=== PATIENT | female | born 2000 | race Caucasian/White ===

== ENCOUNTER 2024-11-22 00:17 | Emergency (ER) | payer BC ==
[~2024-11-22] VITALS: Ht 157.5 cm; Wt 87.5 kg
[2024-11-22 00:19] VITALS: TEMP 97.6
[2024-11-22 00:49] LABS: LEUKOCYTE ESTERASE ,URINE TRACE (Neg); NITRITES, URINE NEGATIVE (Neg); OCCULT BLOOD,URINE TRACE-INTACT (Neg); UA COLLECTION TYPE CLN CATCH MIDSTREAM
[2024-11-22 00:50] LABS: URINE HCG NEGATIVE (NEG)
[2024-11-22 00:52] LABS: MEAN PLATELET VOLUME 7.6 FL (7.4-10.4); RED CELL DISTRIBUTION WIDTH 12.7 % (11.5-14.5)
[2024-11-22 00:55] LABS: CREATININE 0.92 MG/DL (0.40-0.90); TOTAL CARBON DIOXIDE 27.5 MMOL/L (24-32); eCRCL 75 ML/MIN; eGFR 75 ML/MIN
[2024-11-22 00:57] LABS: MUCUS STRANDS MODERATE /LPF (Neg); SQUAMOUS EPITHELIAL CELL,UR MODERATE /LPF (FEW)
[2024-11-22] MEDS ORDERED: morphine 4 MG/ML inj SYRINge IV PRN (02:15)
--- NOTE | 2024-11-22 02:16 | Physician Documentation ---
History of Present Illness ~ Chief Complaint: Abdominal Pain Stated Complaint: ABDOMINAL/SIDE PAIN Time Seen by MD: 01:38 Source: patient Mode of Arrival: POV Exam Limitations: no limitations HPI Chief Complaint: Left upper quadrant abdominal pain and flank pain Caveat: None Independent Historians: None History of Present Illness: Patient is a 24-year-old woman who comes in complaining of pain in the left upper quadrant that started approximately three days ago. It started off as being intermittent but has gotten progressively worse in his now constant. Patient's pain is currently 8/10. No alleviating or exacerbating factors. Pain is described as sharp and radiating. Patient also has pain in her left shoulder. Patient has had chronic urinary urgency. But no acute dysuria or frequency. No fevers. But approximately 5-6 days ago she was having problems of feeling cold and then hot. Patient has had associated nausea. No vomiting. No diarrhea. Review of systems: All systems were reviewed and are negative except for what is indicated in the history of present illness. Past Medical History: PCOS Past Surgical History: Cholecystectomy, tonsillectomy Social History: Occasionally vapes, no tobacco use, no alcohol use, no drug use Medications: Reviewed as documented Nursing Notes Allergies: Reviewed as documented in Nursing Notes Medication Reconciliation Allergies: Coded Allergies: No Known Allergies (Unverified , 11/22/24) Review of Systems All Other Systems at this time: Reviewed and Negative ROS Patient denies any other acute symptoms other than above. All other systems are negative Physical Exam Vital Signs: RN Vital Signs have been reviewed: Yes, Temperature: 97.6, Heart Rate: 82, Respiratory Rate: 16, BP: 120/79, Pulse Oximetry: 96, Weight: 87.500 Pulse Oximetry Reflects: adequate oxygenation Physical Exam General Appearance: Mild distress HEENT: Normal OP, moist oral mucosa, PERRL, EOMI Neck: supple, normal ROM, trachea midline Pulmonary: No respiratory distress, CTA, BS equal Cardiac: RRR, no murmur, rub or gallop, GI: nondistended, soft, left upper quadrant tenderness, normal bowel sounds, no guarding, no rebound : Bilateral CVA tenderness Extremities: normal ROM, no swelling, non-tender Skin: intact, dry, warm, no rashes Neuro: AAOx3, speech is clear, no focal motor weakness Psych: normal affect, good eye contact, no apparent hallucination, normal speech Progress Results/Orders Results/Orders Orders - NIKKI THOMPSON MD Cult Urine + [address] (11/22/24 00:58) Urinalysis, Cult If Indicated (11/22/24 02:11) Ed Iv Pain Medications (11/22/24 02:11) Ct Abdomen Pelvis (11/22/24 02:27) Saline Lock (11/22/24 02:11) Completed Orders - NIKKI THOMPSON MD Hcg, Ur Ql (11/22/24 00:23) Cbc/Diff (11/22/24 00:23) BMP (11/22/24 00:23) Lipase (11/22/24 00:23) CMP (11/22/24 00:23) Ua W/Microscopic, Cult If Ind (11/22/24 00:24) Ondansetron Inj. (Zofran 4mg/2ml Vial) (11/22/24 02:15) Morphine 4mg/Ml Inj. (Morphine Inj.) (11/22/24 02:15) Ct Abdomen Pelvis (11/22/24 02:27) Ketorolac Trometh 15mg/Ml Vial (Toradol (11/22/24 02:15) Vital Signs 11/22/24 11/22/24 11/22/24 11/22/24 00:19 00:51 01:25 02:45 Temp 97.6 Pulse 110 82 Resp 15 16 17 B/P (MAP) 122/79 120/79 (93) Pulse Ox 100 96 11/22/24 03:09 Pulse 71 Resp 16 B/P (MAP) 107/69 (82) Pulse Ox 97 Laboratory Tests Test 11/22/24 00:24 11/22/24 00:27 Urine Specimen Description Cln catch midstream Urine Color Yellow Urine Clarity Slightly cloudy Urine pH 6.5 Urine Specific [place] 1.025 Urine Protein Negative Urine Glucose (UA) Negative Urine Ketones Negative Urine Occult Blood Trace-intact Urine Nitrite Negative Urine Bilirubin Negative Urine Urobilinogen 1.0 Urine Leukocyte Esterase Trace H Urine RBC 0-2 Urine WBC 5-10 H Urine Squamous Epithelial Cells Moderate Urine Bacteria 2+ Urine Mucus Moderate Urine Culture Indicated Indicated Volume Urine Centrifuged 10 ml Urine HCG, Qualitative Negative Urine Comment White Blood Count 9.9 Red Blood Count 5.01 Hemoglobin 15.3 Hematocrit 43.8 Mean Corpuscular Volume 87.4 Mean Corpuscular Hemoglobin 30.5 Mean Corpuscular Hemoglobin Concent 34.9 Red Cell Distribution Width 12.7 Platelet Count 349 Mean Platelet Volume 7.6 Neutrophils (%) (Auto) 43.1 Lymphocytes (%) (Auto) 47.7 Monocytes (%) (Auto) 6.8 Eosinophils (%) (Auto) 1.3 Basophils (%) (Auto) 1.1 H Neutrophils # (Auto) 4.3 Lymphocytes # (Auto) 4.7 Monocytes # (Auto) 0.7 Eosinophils # (Auto) 0.1 Basophils # (Auto) 0.1 CBC Comment Sodium Level 137 Potassium Level 3.8 Chloride Level 103 Carbon Dioxide Level 27.5 Anion Gap 7 L Blood Urea Nitrogen 7 Creatinine 0.92 H Estimated GFR/1.73 m2 75 BUN/Creatinine Ratio 7.6 L Glucose Level 119 H Calcium Level 8.7 Total Bilirubin 0.4 Aspartate Amino Transf (AST/SGOT) 43 H Alanine Aminotransferase (ALT/SGPT) 118 H Alkaline Phosphatase 87 Total Protein 8.1 Albumin 4.3 Globulin 3.8 Albumin/Globulin Ratio 1.1 Lipase 67 Chemistry Comments Microbiology Date/Time Source Procedure Growth Status 11/22/24 00:58 Urine Clean Catch Midstream Urine Culture - Preliminary Culture received. Resulted Medical Decision Making Additional info obtained from: old records Findings Differential diagnosis includes but is not limited to: Ureteral lithiasis, renal colic, ureteral colic, pyelonephritis, urinary tract infection, pancreatitis Abdomen and pelvis CT scan without IV contrast, indication: Abdominal pain Impression: 1. Left abdominal epiploic appendagitis. 2. Hepatomegaly and hepatic steatosis. 3. Probable right ovarian cyst. Laboratory data independent interpretation: CBC: Unremarkable CMP: Unremarkable Urinalysis: 1st urinalysis is contaminated Emergency department course/medical decision-making: Patient is a healthy 24-year-old woman who presents with upper abdominal pain. Patient's lab work is unremarkable. Patient does not have any right upper quadrant tenderness. LFTs are unremarkable. CT scan of the abdomen and pelvis performed with no identifiable cause. Patient was given four of Zofran, 4 mg IV morphine and 1 L normal saline. Patient is feeling better in her symptoms have resolved. Patient is afebrile and hemodynamically stable. No evidence of GI bleed, no evidence of acute pancreatitis or acute cholecystitis. Patient may have gastritis. Patient is found to have hepatic steatosis on CT scan. Test results and treatment plan reviewed that with the patient. Patient does not meet any admission criteria. Medical or surgical emergency identified. Patient is stable for discharge. Departure Time of Disposition: 03:34 Disposition: 01 HOME / SELF CARE / HOMELESS Impression: Primary Impression: Epiploic appendagitis Additional Impression: Abdominal pain Qualified Codes: R10.12 - Left upper quadrant pain Discharge Instructions: Epiploic Appendagitis Additional Instructions: FOLLOW UP WITH YOUR PRIMARY CARE DOCTOR. TAKE MOTRIN AND TYLENOL FOR PAIN. FOLLOW UP WITH YOUR PRIMARY CARE DOCTOR NEEDED Education Educated: Patient Educated regarding: diagnosis, treatment, need for follow up Signature Scribe Signature: No scribe Attestation: No scribe NIKKI THOMPSON MD Nov 22, 2024 02:16
[2024-11-22] MEDS: ketorolac trometh 15mg/ml vial 15 MG/ML ML IV ONE (02:45)
[2024-11-22] MEDS: ondansetron/PF 4mg/2ml inj IV ONE (02:45)
--- NOTE | 2024-11-22 03:03 | RADIOLOGY REPORT ---
Exam: CT CT ABDOMEN PELVIS History: Abdominal Pain Comparison Study: None Technique: Multidetector spiral CT of the abdomen was performed from lung bases to pubic symphysis. I maging was performed without IV contrast. Axial, coronal and sagittal multiplanar reformats were obta ined from the axial data set by the technologist. Radiation Dose : 1. Abdomen/Pelvis: CTDIvol 31.72 mGy, DLP 1745.13 mGy*cm. Findings: Evaluation of solid organs is limited due to lack of intravenous contrast use. Lung Bases: No acute or significant lung base finding. Normal heart size. No pleural or pericardial effusion. Liver: The liver is enlarged, measuring 19.6 cm in craniocaudal dimension. Diffuse hepatic steatosis. No focal lesions. Gallbladder and Biliary Tree: Status post cholecystectomy. Spleen: Unremarkable Pancreas: The pancreas is grossly normal in appearance. Adrenal Glands: Unremarkable Kidneys: Kidneys are grossly normal without calculi or hydronephrosis. Bladder: Grossly unremarkable for degree of distention. Bowel: The stomach is grossly normal in appearance. Small bowel and colon are normal in caliber and d istribution. The appendix is normal. Ascites: Absent Lymphadenopathy: No mesenteric, retroperitoneal or periportal lymphadenopathy. 2.0 cm fat attenuation focus exhibiting peripheral inflammation ventrally adjacent to the descending colon consistent with epiploic appendagitis. Abdominal Wall and Mesentery: Unremarkable. Vasculature: The visualized abdominal aorta is normal in size and caliber. Evaluation of abdominal a nd pelvic vessels is limited due to lack of intravenous contrast. Pelvic Organs: 2.4 cm probable right ovarian cyst. Uterus is unremarkable. Musculoskeletal: No aggressive focal bony lesions, acute fractures or dislocation. IMPRESSION: 1. Left abdominal epiploic appendagitis. 2. Hepatomegaly and hepatic steatosis. 3. Probable right ovarian cyst. Radiation optimization: All CT scans at this facility use at least one of these dose optimization mateo hniques: automated exposure control mA and/or kV adjustment per patient size (includes targeted exam s where dose is matched to clinical indication) or iterative reconstruction.
[2024-11-22 03:09] VITALS: BP 107/69; PULSE 71; RESP 16; O2SAT 97
== END 2024-11-22 03:52 | disposition home or self-care (01) ==
LOC: ER 00:19
DX: K63.89 Other specified diseases of intestine (principal); F17.290 Nicotine dependence, other tobacco product, uncomplicated; Z90.49 Acquired absence of other specified parts of digestive tract
CPT/HCPCS: 36415; 74176; 80053; 81001; 81025; 83690; 85025; 87088; 96374; 96375; 99285; J1885; J2405